=== PATIENT | female | born 1965 | race Caucasian/White ===

== ENCOUNTER 2018-11-07 09:54 | Inpatient (IN) | payer OTHER ==
[2018-11-07] MEDS ORDERED: NA CHLORIDE 0.9% 1,000 ML ONE ×2 (11:35→14:13)
[2018-11-07] MEDS ORDERED: MORPHINE 4 MG/ML SYR ONE ×2 (11:35→14:13)
[2018-11-07] MEDS ORDERED: ONDANSETRON 4 MG/2 ML VIAL ONE (11:35)
[2018-11-07 11:52] LABS: Absolute Lymphocytes (CBC) 0.7 K/uL (0.7-4.9); Basophils % 0.2 % (0-1.3); Hematocrit 50.1 % (36.0-45.0); Lymphocytes % 2.4 % (15.3-44.8); MPV 10.9 fL (7.6-11.3); Monocytes % 7.9 % (3.3-12.3); RBC Red Blood Cell Count 5.68 M/uL (3.86-4.86)
[2018-11-07 12:18] LABS: Albumin 4.9 g/dL (3.4-5.0); Bilirubin Direct 0.2 mg/dL (0-0.2); Bilirubin Total 0.7 mg/dL (0.2-1.0); Potassium 4.4 mmol/L (3.5-5.1); Protein, Total 9.2 g/dL (6.4-8.2)
[2018-11-07 13:05] LABS: Blood Morphology Comment NOT SEEN (NOT SEEN); Platelet Estimate ADEQ
--- NOTE | 2018-11-07 13:31 | RAD REPORT ---
EXAM DESCRIPTION: CTAbdomen Pelvis W Contrast - 11/07/2018 12:54 pm CLINICAL HISTORY: Abdominal pain. Abd pain;GI bleed COMPARISON: Abdomen Pelvis W Contrast dated 10/17/2016; CT ABD PELVIS W CONTRAST dated 12/02/2012 TECHNIQUE: Biphasic CT imaging of the abdomen and pelvis was performed with 100 ml non-ionic IV cont rast. All CT scans are performed using dose optimization technique as appropriate and may include automated exposure control or mA/KV adjustment according to patient size. FINDINGS: The lung bases are clear. Cholecystectomy clips. The liver, spleen, pancreas, adrenal glands and kidneys are within normal limits. Small cyst is prese nt in the medial left kidney. No bowel obstruction, free air, free fluid or abscess. Mild wall thickening and mucosal enhancement i s seen involving the colon beginning at the transverse colon, extending along the splenic flexure and involving the descending colon. This is compatible with [id number] left-sided colitis. No pneu matosis coli seen. The appendix is normal. No evidence of significant lymphadenopathy. No suspicious bony findings. Hardware is present in the lower lumbar spine. IMPRESSION: [id number] left-sided colitis is present. No bowel obstruction or abscess.
--- NOTE | 2018-11-07 14:05 | ER ---
Nurse's Notes [facility] Name: Amy Rangel Age: 53 yrs Sex: Female : 1965 Arrival Date: 11/07/2018 Time: 09:56 Bed 6 Private MD: Shayan Banda T Diagnosis: Left sided colitis with rectal bleeding;Leukocytosis Presentation: 11/07 10:04 Presenting complaint: N/V/D, abdominal cramping, and subjective fever x 2 days, bright hb red blood in stool today. Transition of care: patient was not received from another setting of care. Onset of symptoms was November 06, 2018. Risk Assessment: Do you want to hurt yourself or someone else? Patient reports no desire to harm self or others. Care prior to arrival: None. 10:04 Method Of Arrival: Ambulatory hb 10:04 Acuity: NELSY 3 hb 16:14 Initial Sepsis Screen: Does the patient meet any 2 criteria? No. Patient's initial aj sepsis screen is negative. Does the patient have a suspected source of infection? No. Patient's initial sepsis screen is negative. Historical: - Allergies: 10:06 PENICILLINS; hb 10:06 Codeine; hb 10:06 Sulfa (Sulfonamide Antibiotics); hb - Home Meds: 10:06 losartan oral oral [Active]; Glyxambi oral oral [Active]; rosuvastatin oral oral hb [Active]; Trulicity subcutaneous subcutaneous [Active]; Lyrica Oral [Active]; - PMHx: 10:06 Hypertension; Diabetes - IDDM; hb - Immunization history:: Adult Immunizations up to date. - Social history:: Smoking status: Patient/guardian denies using tobacco. - Ebola Screening: : No symptoms or risks identified at this time. Screenin:17 Abuse screen: Denies threats or abuse. Denies injuries from another. Nutritional hb screening: No deficits noted. Tuberculosis screening: No symptoms or risk factors identified. Fall Risk None identified. Assessment: 10:20 General: Appears in no apparent distress. comfortable, Behavior is calm, cooperative, aj appropriate for age. Pain: Complains of pain in abdomen. Neuro: Level of Consciousness is awake, alert, obeys commands, Oriented to person, place, time, situation, Appropriate for age. Respiratory: Airway is patent Respiratory effort is even, unlabored, Respiratory pattern is regular, symmetrical. GI: Abdomen is non-distended, obese, Reports lower abdominal pain, upper abdominal pain, diarrhea, bloody stool, nausea, vomiting. Derm: Skin is intact, is healthy with good turgor, Skin is pink, warm \T\ dry. normal. 12:45 Reassessment: Patient appears in no apparent distress at this time. No changes from aj previously documented assessment. Patient and/or family updated on plan of care and expected duration. Pain level reassessed. Patient is alert, oriented x 3, equal unlabored respirations, skin warm/dry/pink. 12:45 Reassessment: Patient appears in no apparent distress at this time. No changes from aj previously documented assessment. Patient and/or family updated on plan of care and expected duration. Pain level reassessed. Patient is alert, oriented x 3, equal unlabored respirations, skin warm/dry/pink. 15:33 Reassessment: Patient appears in no apparent distress at this time. No changes from aj previously documented assessment. Patient and/or family updated on plan of care and expected duration. Pain level reassessed. Patient is alert, oriented x 3, equal unlabored respirations, skin warm/dry/pink. Patient states feeling better. Patient states symptoms have improved. Vital Signs: 10:06 BP 130 / 78; Pulse 119; Resp 16; Temp 98.2; Pulse Ox 100% on R/A; Weight 68.04 kg; hb Height 5 ft. 5 in. (165.10 cm); Pain 7/10; 11:37 BP 115 / 75; Pulse 93; Resp 16; Pulse Ox 100% on R/A; aj 12:42 BP 120 / 77; Pulse 103; Resp 20; Pulse Ox 100% on R/A; aj 15:33 BP 120 / 77; Pulse 67; Resp 17; Pulse Ox 99% on R/A; aj 16:55 BP 119 / 73; Pulse 76; Resp 16; Pulse Ox 99% on R/A; aj 10:06 Body Mass Index 24.96 (68.04 kg, 165.10 cm) hb ED Course: 09:56 Patient arrived in ED. ag5 09:56 Shayan Banda MD is Private Physician. ag5 10:05 Triage completed. hb 10:06 Arm band placed on. hb 10:15 Rosa Abbasi, JOSE ALEJANDRO is Primary Nurse. aj 10:16 Michael Davis NP is PHCP. pm1 10:16 José Van MD is Attending Physician. pm1 10:17 Allergy band placed. Bed in low position. Call light in reach. Side rails up X 1. hb 11:36 Inserted saline lock: 22 gauge in right antecubital area, using aseptic technique. aj Blood collected. 12:45 No provider procedures requiring assistance completed. aj 12:55 CT Abd/Pelvis - IV Contrast Only In Process Unspecified. EDMS 14:02 Kirsten Galeana MD is Hospitalizing Provider. pm1 15:10 Urine collected: clean catch specimen, clear, luis colored. jb1 16:14 Patient admitted, IV remains in place. intact. aj 16:56 Report given to Erika Weinstein RN. aj Administered Medications: 11:34 Drug: Zofran 4 mg Route: IVP; Site: right antecubital; aj 11:34 Drug: morphine 4 mg Route: IVP; Site: right antecubital; aj 11:35 Drug: NS 0.9% 1000 ml Route: IV; Rate: 1000 ml; Site: right antecubital; aj 14:00 Drug: NS 0.9% 1000 ml Route: IV; Rate: 1000 ml; Site: right antecubital; aa5 17:09 Follow up: Response: No adverse reaction; IV Status: Completed infusion; IV Intake: aj 1000ml 14:00 Drug: morphine 4 mg Route: IVP; Site: right antecubital; aa5 14:05 Follow up: Response: No adverse reaction aa5 14:03 Drug: Flagyl 500 mg Volume: 100 ml; Route: IVPB; Rate: 200 ml/hr; Infused Over: 30 aa5 mins; Site: right antecubital; 15:41 Follow up: Response: No adverse reaction; IV Status: Completed infusion; IV Intake: aj 100ml 15:05 Drug: LevaQUIN 500 mg Volume: 100 ml; Route: IVPB; Infused Over: 60 mins; Site: right aj antecubital; 17:09 Follow up: Response: No adverse reaction; IV Status: Completed infusion; IV Intake: aj 100ml Intake: 15:41 IV: 100ml; Total: 100ml. aj 17:09 IV: 1000ml; Total: 1100ml. aj 17:09 IV: 100ml; Total: 1200ml. aj Outcome: 14:04 Decision to Hospitalize by Provider. pm1 16:12 Admitted to Med/surg accompanied by tech, via wheelchair, room 203, with chart. jignesh 16:12 Condition: good 16:12 Instructed on the need for admit. 17:09 Patient left the ED. jignesh Signatures: Dispatcher [employer] EDConrad Paredes jb1 Rosa Abbasi RN RN Holly Ho RN RN aa5 Michael Davis, DIRECTOR OF SAFETY AND SECURITY DIRECTOR OF SAFETY AND SECURITY pm1 Delisa Prado RN RN Hailee Perez ag5 Corrections: (The following items were deleted from the chart) 12:50 12:45 BP 115 / 77; Pulse 70bpm; Resp 16bpm; Pulse Ox 100% RA; jignesh egan
--- NOTE | 2018-11-07 14:05 | EDPHYS ---
Physician Documentation [facility] Name: Amy Rangel Age: 53 yrs Sex: Female : 1965 Arrival Date: 11/07/2018 Time: 09:56 Bed 6 Private MD: Shayan Banda T ED Physician José Van HPI: 11/07 11:09 This 53 yrs old Female presents to ER via Ambulatory with complaints of pm1 Bloody Stools, Diarrhea, Abdominal Pain. 11:09 The patient presents with abdominal pain in the left lower quadrant. Onset: The pm1 symptoms/episode began/occurred 2 day(s) ago. The symptoms do not radiate. Associated signs and symptoms: Pertinent positives: fever, Bloody mucoid diarrhea onset today, Pertinent negatives: nausea and vomiting, chest pain, dysuria, shortness of breath. The symptoms are described as crampy. Modifying factors: The symptoms are alleviated by nothing, the symptoms are aggravated by nothing. Severity of pain: in the emergency department the pain is actually worse. The patient has experienced similar episodes in the past, with the last episode occurring Ulcerative colitis flare up. The patient has not recently seen a physician, the patient's primary care provider is Dr. Banda. Historical: - Allergies: 10:06 PENICILLINS; hb 10:06 Codeine; hb 10:06 Sulfa (Sulfonamide Antibiotics); hb - Home Meds: 10:06 losartan oral oral [Active]; Glyxambi oral oral [Active]; rosuvastatin oral oral hb [Active]; Trulicity subcutaneous subcutaneous [Active]; Lyrica Oral [Active]; - PMHx: 10:06 Hypertension; Diabetes - IDDM; hb - Immunization history:: Adult Immunizations up to date. - Social history:: Smoking status: Patient/guardian denies using tobacco. - Ebola Screening: : No symptoms or risks identified at this time. ROS: 11:09 Eyes: Negative for injury, pain, redness, and discharge, ENT: Negative for injury, pm1 pain, and discharge. 11:09 Neck: Negative for injury, pain, and swelling, Cardiovascular: Negative for chest pain, palpitations, and edema, Respiratory: Negative for shortness of breath, cough, wheezing, and pleuritic chest pain. 11:09 Back: Negative for injury and pain, : Negative for injury, bleeding, discharge, and swelling, MS/Extremity: Negative for injury and deformity, Skin: Negative for injury, rash, and discoloration, Neuro: Negative for headache, weakness, numbness, tingling, and seizure. 11:09 Constitutional: Positive for fever, Negative for poor PO intake. 11:09 Abdomen/GI: Positive for abdominal pain, rectal bleeding, Negative for nausea and vomiting, hematemesis. Exam: 11:09 Constitutional: This is a well developed, well nourished patient who is awake, alert, pm1 and in no acute distress. Head/Face: Normocephalic, atraumatic. Neck: Trachea midline, no thyromegaly or masses palpated, and no cervical lymphadenopathy. Supple, full range of motion without nuchal rigidity, or vertebral point tenderness. No Meningismus. Chest/axilla: Normal chest wall appearance and motion. Nontender with no deformity. No lesions are appreciated. Cardiovascular: Regular rate and rhythm with a normal S1 and S2. No gallops, murmurs, or rubs. Normal PMI, no JVD. No pulse deficits. Respiratory: Lungs have equal breath sounds bilaterally, clear to auscultation and percussion. No rales, rhonchi or wheezes noted. No increased work of breathing, no retractions or nasal flaring. 11:09 Back: No spinal tenderness. No costovertebral tenderness. Full range of motion. Skin: Warm, dry with normal turgor. Normal color with no rashes, no lesions, and no evidence of cellulitis. MS/ Extremity: Pulses equal, no cyanosis. Neurovascular intact. Full, normal range of motion. 11:09 Abdomen/GI: Inspection: abdomen appears normal, Bowel sounds: normal, Palpation: soft, moderate abdominal tenderness, in the left lower quadrant, mass, is not appreciated, rebound tenderness, is not appreciated, Bright red mucoid stool observed in the ER bathroom. 11:09 Neuro: Orientation: is normal, Motor: is normal, moves all fours, Sensation: is normal, no obvious gross deficits. Vital Signs: 10:06 BP 130 / 78; Pulse 119; Resp 16; Temp 98.2; Pulse Ox 100% on R/A; Weight 68.04 kg; hb Height 5 ft. 5 in. (165.10 cm); Pain 7/10; 11:37 BP 115 / 75; Pulse 93; Resp 16; Pulse Ox 100% on R/A; aj 12:42 BP 120 / 77; Pulse 103; Resp 20; Pulse Ox 100% on R/A; aj 15:33 BP 120 / 77; Pulse 67; Resp 17; Pulse Ox 99% on R/A; aj 16:55 BP 119 / 73; Pulse 76; Resp 16; Pulse Ox 99% on R/A; aj 10:06 Body Mass Index 24.96 (68.04 kg, 165.10 cm) hb MDM: 10:36 Patient medically screened. pm1 13:55 Counseling: I had a detailed discussion with the patient and/or guardian regarding: the pm1 historical points, exam findings, and any diagnostic results supporting the discharge/admit diagnosis, lab results, radiology results, the need for further work-up and treatment in the hospital. 13:55 Data reviewed: vital signs. Data interpreted: Pulse oximetry: on room air is 100 %. pm1 Interpretation: normal. 14:00 Physician consultation: Kirsten Galeana MD was called at 14:00, was contacted at 14:00, pm1 regarding admission, patient's condition, and will see patient. 14:00 Physician consultation: Kirsten Galeana MD She will place patient in observation status pm1 and will discuss with case management to determine if patient meets criteria for inpatient admission. 11/07 11:09 Order name: Basic Metabolic Panel; Complete Time: 12:34 pm1 11/07 11:09 Order name: CBC with Diff; Complete Time: 13:14 pm1 11/07 11:09 Order name: Creatinine for Radiology; Complete Time: 12:34 pm11/07 11:09 Order name: Hepatic Function; Complete Time: 12:34 pm11/07 11:09 Order name: Lipase; Complete Time: 12:34 pm11/07 11:56 Order name: Procalcitonin; Complete Time: 13:32 pm11/07 11:09 Order name: CT Abd/Pelvis - IV Contrast Only; Complete Time: 13:32 pm11/07 11:56 Order name: Lactate; Complete Time: 13:50 pm1 11/07 11:56 Order name: Blood Culture Adult (2) pm1 11/07 11:58 Order name: Manual Differential; Complete Time: 13:14 EDMS 11/07 14:18 Order name: Urine Dipstick--Ancillary (enter results); Complete Time: 14:41 eb 11/07 11:09 Order name: IV Saline Lock; Complete Time: 11:35 pm1 11/07 11:09 Order name: Labs collected and sent; Complete Time: 11:35 pm1 11/07 11:09 Order name: Urine Dipstick-Ancillary (obtain specimen); Complete Time: 15:45 pm1 11/07 14:06 Order name: CONS Physician Consult EDNE 11/07 14:06 Order name: NPO EDNE Administered Medications: 11:34 Drug: Zofran 4 mg Route: IVP; Site: right antecubital; aj 11:34 Drug: morphine 4 mg Route: IVP; Site: right antecubital; aj 11:35 Drug: NS 0.9% 1000 ml Route: IV; Rate: 1000 ml; Site: right antecubital; aj 14:00 Drug: NS 0.9% 1000 ml Route: IV; Rate: 1000 ml; Site: right antecubital; aa5 17:09 Follow up: Response: No adverse reaction; IV Status: Completed infusion; IV Intake: aj 1000ml 14:00 Drug: morphine 4 mg Route: IVP; Site: right antecubital; aa5 14:05 Follow up: Response: No adverse reaction aa5 14:03 Drug: Flagyl 500 mg Volume: 100 ml; Route: IVPB; Rate: 200 ml/hr; Infused Over: 30 aa5 mins; Site: right antecubital; 15:41 Follow up: Response: No adverse reaction; IV Status: Completed infusion; IV Intake: aj 100ml 15:05 Drug: LevaQUIN 500 mg Volume: 100 ml; Route: IVPB; Infused Over: 60 mins; Site: right aj antecubital; 17:09 Follow up: Response: No adverse reaction; IV Status: Completed infusion; IV Intake: aj 100ml Disposition: 11/07/18 14:04 Hospitalization ordered by Kirsten Galeana for Observation. Preliminary diagnosis are Left sided colitis with rectal bleeding, Leukocytosis. - Bed requested for Telemetry/MedSurg (observation). - Status is Observation. aj - Condition is Stable. - Problem is new. - Symptoms have improved. UTI on Admission? No Addendum: 11/09/2018 07:46 Co-signature as Attending Physician, José Van MD. g s Signatures: Dispatcher [employer] EDNE Elva Forrester, RN Rosa Baldwin, RN RN Holly Ho, RN RN aa5 Michael Davis, ADMITTING REPRESENTATIVE ADMITTING REPRESENTATIVE pm1 Delisa Prado, José Renteria RN, MD MD gs Corrections: (The following items were deleted from the chart) 11/07 16:04 14:04 Hospitalization Ordered by Kirsten Galeana MD for Observation. Preliminary dw diagnosis is Left sided colitis with rectal bleeding; Leukocytosis. Bed requested for Telemetry/MedSurg (observation). Status is Observation. Condition is Stable. Problem is new. Symptoms have improved. UTI on Admission? No. pm1 17:09 16:04 11/07/2018 14:04 Hospitalization Ordered by Kirsten Galeana MD for Observation. aj Preliminary diagnosis is Left sided colitis with rectal bleeding; Leukocytosis. Bed requested for Telemetry/MedSurg (observation). Status is Observation. Condition is Stable. Problem is new. Symptoms have improved. UTI on Admission? No. dw
[2018-11-07] MEDS ORDERED: METRONIDAZOLE 500mg IVPB 500 MG/100 ML BAG IV ONE (14:13)
[2018-11-07] MEDS ORDERED: Levofloxacin500mg IV 500 MG/100 ML BAG IV ONE (14:13)
[2018-11-07 14:30] LABS: Urine Blood 1+ (NEG); Urine Glucose 2+ (NEG); Urine Protein NEGATIVE (NEG); Urine Specific Gravity 1.005 (1.005-1.030)
[2018-11-07] MEDS ORDERED: INSULIN -REGULAR HUMAN 50 UNIT/0.5 ML ML SQ SCH (17:11)
[2018-11-07] MEDS: METRONIDAZOLE 500mg IVPB 500 MG/100 ML BAG IV SCH (17:56)
--- NOTE | 2018-11-07 18:08 | P.HP ---
Certification for Inpatient Patient admitted to: Observation With expected LOS: <2 Midnights Patient will require the following post-hospital care: None Practitioner: I am a practitioner with admitting privileges, knowledge of patient current condition, hospital course, and medical plan of care. Services: Services provided to patient in accordance with Admission requirements found in Title 42 Section 412.3 of the Code of Federal Regulations Patient History Date of Service: 11/07/18 Primary Care Provider: Dr Banda Reason for admission: Abd pain History of Present Illness: 53-year-old female with past medical history of hypertension, diabetes, ulcerative colitis who presented to the ED with abdominal pain nausea vomiting and bloody diarrhea. Patient stated that she has been having some fever and chills for past couple of days and has gotten progressively worse and thus she decided to come to the ER. Patient stated that she has had similar episodes in the past because of her ulcerative colitis and has been treated with steroids and antibiotics. Patient stated that she sees Dr. galicia as her primary care doctor. Patient denies having any shortness of breath, chest pain or any other associated symptoms Allergies codeine [Codeine] Allergy (Intermediate, Verified 02/18/12 22:25) HALLUCINATIONS Penicillins Allergy (Intermediate, Verified 02/18/12 22:25) UNKNOWN Home medications list reviewed: No - Past Medical/Surgical History Has patient received pneumonia vaccine in the past: No Diabetic: No Past Medical History: Reviewed- Non-Contributory -: Hypertension -: Diabetes -: Ulcerative colitis Review of Systems 10-point ROS is otherwise unremarkable Physical Examination - Vital Signs Temperature: 98.2 F Blood Pressure: 119/73 Pulse: 76 Respirations: 16 - Physical Exam General: Alert, In no apparent distress HEENT: Atraumatic, PERRLA, Mucous membr. moist/pink, EOMI, Sclerae nonicteric Neck: Supple, 2+ carotid pulse no bruit, No LAD, Without JVD or thyroid abnormality Respiratory: Clear to auscultation bilaterally, Normal air movement Cardiovascular: Regular rate/rhythm, Normal S1 S2 Gastrointestinal: Normal bowel sounds, Tenderness Integumentary: No rashes Neurological: Normal gait, Normal speech, Normal strength at 5/5 x4 extr, Normal tone, Normal affect Lymphatics: No axilla or inguinal lymphadenopathy - Studies Laboratory Data (last 24 hrs) 11/07/18 11:30: Creatinine 1.07 11/07/18 11:30: WBC 28.0 H*, Hgb 16.8 H, Hct 50.1 H, Plt Count 424 H 11/07/18 11:30: Sodium 137, Potassium 4.4, BUN 27 H, Creatinine 1.10, Glucose 159 H, Total Bilirubin 0.7, AST 40 H, ALT 52, Alkaline Phosphatase 240 H, Lipase 38 L Assessment and Plan - Problems (Diagnosis) (1) Left sided colitis Current Visit: Yes Status: Acute Plan: Left-sided colitis with past medical history of ulcerative colitis -patient with bloody diarrhea nausea vomiting along with fever and chills -will start patient on IV Cipro and Flagyl -the NPO and pain management along with IV fluids -GI consulted. Awaiting recommendations Qualifiers: Digestive disease complication type: without complication Qualified Code(s) : K51.50 - Left sided colitis without complications (2) History of ulcerative colitis Current Visit: Yes Status: Chronic (3) Hypertension Current Visit: Yes Status: Chronic Qualifiers: Hypertension type: essential hypertension Qualified Code(s): I10 - Essential (primary) hypertension (4) Diabetes Current Visit: Yes Status: Chronic Qualifiers: Diabetes mellitus type: type 2 Diabetes mellitus fdc insulin use: without fdc use Diabetes mellitus complication status: without complication Qualified Code(s): E11.9 - Type 2 diabetes mellitus without complications Discharge Plan: Home Plan to discharge in: Greater than 2 days - Advance Directives Does patient have a Living Will: No Does patient have a Durable POA for Healthcare: No - Code Status/Comfort Care Code Status Assessed: Yes Critical Care: No
[2018-11-07 18:23] VITALS: BMI 25.0
[2018-11-07] MEDS: ONDANSETRON 4 MG/2 ML VIAL IV PRN ×2 (18:45→22:26)
[2018-11-07] MEDS: D5 0.45 NS 1,000 ML IV SCH (19:00)
[2018-11-07] MEDS: CIPROFLOXACIN 400mg IV 400 MG/200 ML BAG IV SCH (20:09)
[2018-11-07] MEDS: MORPHINE 2 MG/ML SYR IV PRN (20:15)
[2018-11-08] MEDS: METRONIDAZOLE 500mg IVPB 500 MG/100 ML BAG IV SCH ×5 (01:00→23:04)
[2018-11-08] MEDS: MORPHINE 2 MG/ML SYR IV PRN ×3 (04:29→18:47)
[2018-11-08] MEDS: D5 0.45 NS 1,000 ML IV SCH ×2 (05:41→23:02)
[2018-11-08 05:48] LABS: Absolute Lymphocytes (CBC) 1.3 K/uL (0.7-4.9); Basophils % 0.2 % (0-1.3); Eosinophils % 0.2 % (0-4.4); Hematocrit 40.2 % (36.0-45.0); Lymphocytes % 7.1 % (15.3-44.8); MPV 10.4 fL (7.6-11.3); Monocytes % 11.9 % (3.3-12.3); RBC Red Blood Cell Count 4.52 M/uL (3.86-4.86)
[2018-11-08 06:00] LABS: Bilirubin Total 0.6 mg/dL (0.2-1.0); Magnesium 2.2 mg/dL (1.8-2.4); Potassium 4.4 mmol/L (3.5-5.1); Protein, Total 6.5 g/dL (6.4-8.2)
[2018-11-08] MEDS: INSULIN -REGULAR HUMAN 50 UNIT/0.5 ML ML SQ SCH ×4 (06:00→17:33)
[2018-11-08] MEDS: CIPROFLOXACIN 400mg IV 400 MG/200 ML BAG IV SCH ×2 (08:16→20:57)
[2018-11-08] MEDS ORDERED: LEVALBUTEROL 0.63 MG/3 ML NEB NEB PRN (10:46)
[2018-11-08] MEDS ORDERED: IPRATROPIUM BROM 0.5MG/2.5ML NEB PRN (10:46)
--- NOTE | 2018-11-08 11:12 | P.PN ---
Subjective Date of Service: 11/08/18 Primary Care Provider: Dr Banda Chief Complaint: Abd pain Patient seen and examined at bedside with RN. Chart reviewed. Case discussed with patient at bedside. Currently awaiting GI recommendation. Denies Diarrhea and N/V. Denies Fever and Chills. Review of Systems 10-point ROS is otherwise unremarkable Physical Examination - Vital Signs Temperature: 98.9 F Blood Pressure: 107/71 Pulse: 92 Respirations: 18 Pulse Ox (%): 92 - Physical Exam General: Alert, In no apparent distress HEENT: Atraumatic, PERRLA, EOMI Neck: Supple, JVD not distended Respiratory: Clear to auscultation bilaterally, Normal air movement Cardiovascular: Regular rate/rhythm, Normal S1 S2 Gastrointestinal: Normal bowel sounds, No tenderness Musculoskeletal: No tenderness Integumentary: No rashes Neurological: Normal speech, Normal tone, Normal affect Lymphatics: No axilla or inguinal lymphadenopathy - Studies Laboratory Data (last 24 hrs) 11/08/18 04:59: Sodium 140, Potassium 4.4, BUN 13, Creatinine 0.68, Glucose 113 H, Phosphorus 2.0 L, Magnesium 2.2, Total Bilirubin 0.6, AST 27, ALT 33, Alkaline Phosphatase 133 H 11/08/18 04:59: WBC 17.8 H D, Hgb 13.2 D, Hct 40.2 D, Plt Count 297 D 11/07/18 11:30: Creatinine 1.07 11/07/18 11:30: WBC 28.0 H*, Hgb 16.8 H, Hct 50.1 H, Plt Count 424 H 11/07/18 11:30: Sodium 137, Potassium 4.4, BUN 27 H, Creatinine 1.10, Glucose 159 H, Total Bilirubin 0.7, AST 40 H, ALT 52, Alkaline Phosphatase 240 H, Lipase 38 L Medications List Reviewed: Yes Assessment And Plan - Current Problems (Diagnosis) (1) Left sided colitis Current Visit: Yes Status: Acute Plan: Left-sided colitis with past medical history of ulcerative colitis -patient with bloody diarrhea nausea vomiting along with fever and chills admission -diarrhea improved today no nausea no vomiting -On IV Cipro and Flagyl -continue with IV fluids and pain management at this time -GI consulted. Awaiting recommendations Qualifiers: Digestive disease complication type: without complication Qualified Code(s) : K51.50 - Left sided colitis without complications (2) History of ulcerative colitis Current Visit: Yes Status: Chronic Plan: Patient with history of ulcerative colitis. -currently seems to have acute infection. -started on IV Cipro and Flagyl will continue that here in the hospital (3) Hypertension Current Visit: Yes Status: Chronic Plan: Stable at this time Qualifiers: Hypertension type: essential hypertension Qualified Code(s): I10 - Essential (primary) hypertension (4) Diabetes Current Visit: Yes Status: Chronic Plan: Insulin sliding scale and Accu-Chek Qualifiers: Diabetes mellitus type: type 2 Diabetes mellitus correction insulin use: without correction use Diabetes mellitus complication status: without complication Qualified Code(s): E11.9 - Type 2 diabetes mellitus without complications
[2018-11-08] MEDS: ROSUVASTATIN 10 MG TAB PO SCH (20:57)
[2018-11-08] MEDS: PREGABALIN 50 MG CAP PO SCH (20:57)
[2018-11-09] MEDS: MORPHINE 2 MG/ML SYR IV PRN ×3 (03:02→21:24)
[2018-11-09 06:02] LABS: Absolute Lymphocytes (CBC) 1.5 K/uL (0.7-4.9); Basophils % 0.1 % (0-1.3); Eosinophils % 0.5 % (0-4.4); Hematocrit 35.5 % (36.0-45.0); Lymphocytes % 9.7 % (15.3-44.8); Monocytes % 8.9 % (3.3-12.3); RBC Red Blood Cell Count 3.99 M/uL (3.86-4.86)
[2018-11-09 06:15] LABS: ALT/SGPT 25 U/L (12-78); AST/SGOT 15 U/L (15-37); Albumin 2.9 g/dL (3.4-5.0); Alkaline Phosphatase 114 U/L (45-117); BUN Blood Urea Nitrogen 7 mg/dL (7-18); Bicarbonate 29 mmol/L (21-32); Bilirubin Total 0.5 mg/dL (0.2-1.0); Glucose Level 125 mg/dL (74-106); Magnesium 2.1 mg/dL (1.8-2.4); Phosphorus 1.7 mg/dL (2.5-4.9); Protein, Total 6.1 g/dL (6.4-8.2); Sodium Level 139 mmol/L (136-145)
[2018-11-09] MEDS: METRONIDAZOLE 500mg IVPB 500 MG/100 ML BAG IV SCH ×3 (06:54→17:15)
[2018-11-09] MEDS ORDERED: D50W 25 GM/50 ML SYRINGE IV PRN (08:54)
[2018-11-09] MEDS ORDERED: GLUCAGON 1 MG/VIAL IM PRN (08:54)
[2018-11-09] MEDS: LOSARTAN POTASSIUM 50 MG TABLET PO SCH (08:57)
[2018-11-09] MEDS: POTASS/SODIUM PHOSPHATE 1 PKT POWD.PACK PO SCH ×3 (08:58→10:35)
[2018-11-09] MEDS: PREGABALIN 50 MG CAP PO SCH ×2 (08:58→21:22)
[2018-11-09] MEDS: CIPROFLOXACIN 400mg IV 400 MG/200 ML BAG IV SCH ×2 (08:58→21:22)
[2018-11-09] MEDS: D5 0.45 NS 1,000 ML IV SCH ×2 (11:00→13:56)
[2018-11-09] MEDS: INSULIN -REGULAR HUMAN 50 UNIT/0.5 ML ML SQ SCH ×3 (11:30→21:00)
--- NOTE | 2018-11-09 12:27 | P.PN ---
Subjective Date of Service: 11/09/18 Primary Care Provider: Dr Banda Chief Complaint: Abd pain Patient seen and examined at bedside with RN. Chart reviewed. Case discussed with patient at bedside. Currently awaiting GI recommendation. Denies Diarrhea and N/V. Denies Fever and Chills. Review of Systems 10-point ROS is otherwise unremarkable Physical Examination - Vital Signs Temperature: 97.5 F Blood Pressure: 91/54 Pulse: 83 Respirations: 16 Pulse Ox (%): 95 - Physical Exam General: Alert, In no apparent distress HEENT: Atraumatic, PERRLA, EOMI Neck: Supple, JVD not distended Respiratory: Clear to auscultation bilaterally, Normal air movement Cardiovascular: Regular rate/rhythm, Normal S1 S2 Gastrointestinal: Normal bowel sounds, No tenderness Musculoskeletal: No tenderness Integumentary: No rashes Neurological: Normal speech, Normal tone, Normal affect Lymphatics: No axilla or inguinal lymphadenopathy - Studies Microbiology Data (last 24 hrs): 11/07/18 20:35 Stool Clostridium difficile Toxin Assay - Final Medications List Reviewed: Yes Assessment And Plan - Current Problems (Diagnosis) (1) Left sided colitis Current Visit: Yes Status: Acute Plan: Left-sided colitis with past medical history of ulcerative colitis -patient with bloody diarrhea nausea vomiting along with fever and chills admission -diarrhea improved today no nausea no vomiting -On IV Cipro and Flagyl -continue with IV fluids and pain management at this time -C. diff positive -GI consulted. Awaiting recommendations - Qualifiers: Digestive disease complication type: without complication Qualified Code(s) : K51.50 - Left sided colitis without complications (2) History of ulcerative colitis Current Visit: Yes Status: Chronic Plan: Patient with history of ulcerative colitis. -currently seems to have acute infection. 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
--- NOTE | 2018-11-09 16:06 | P.PN ---
Subjective Date of Service: 11/09/18 Primary Care Provider: Dr Banda Chief Complaint: Colitis, abnormal CT, LLQ>RLQ abd pain Subjective: Improving (Decreased abdominal pain. Tolerating CLs) Review of Systems 10-point ROS is otherwise unremarkable Gastrointestinal: Nausea, Abdominal Pain (Slowly improving ) Physical Examination - Vital Signs Temperature: 97.5 F Blood Pressure: 91/54 Pulse: 83 Respirations: 16 Pulse Ox (%): 95 - Physical Exam General: Alert, In no apparent distress, Oriented x3, Cooperative HEENT: Atraumatic, Normocephalic, PERRLA, EOMI Neck: Supple Respiratory: Normal air movement Cardiovascular: Normal pulses Gastrointestinal: No rebound, Tenderness, Guarding Neurological: Normal speech, Normal strength at 5/5 x4 extr - Studies Microbiology Data (last 24 hrs): 11/07/18 20:35 Stool Clostridium difficile Toxin Assay - Final Medications List Reviewed: Yes Assessment And Plan - Current Problems (Diagnosis) (1) Abnormal CT of the abdomen Current Visit: Yes Status: Acute (2) Change in bowel habits Current Visit: Yes Status: Acute (3) Diarrhea Current Visit: Yes Status: Acute (4) Left sided colitis Current Visit: Yes Status: Acute Comment: Probably infectious in origin with symptoms after eating out. Qualifiers: Digestive disease complication type: without complication Qualified Code(s) : K51.50 - Left sided colitis without complications (5) History of ulcerative colitis Current Visit: Yes Status: Chronic - Plan REC: 1) Continue IVFs and IV antibiotics 2) await stool studies 3) clear liquid diet today 4) continue prn pain medications / anti-emetics
[2018-11-09] MEDS: ROSUVASTATIN 10 MG TAB PO SCH (21:23)
[2018-11-10] MEDS: METRONIDAZOLE 500mg IVPB 500 MG/100 ML BAG IV SCH ×3 (00:47→11:52)
[2018-11-10] MEDS: D5 0.45 NS 1,000 ML IV SCH ×2 (00:56→07:00)
[2018-11-10 06:48] LABS: Absolute Lymphocytes (CBC) 1.2 K/uL (0.7-4.9); Basophils % 0.2 % (0-1.3); Eosinophils % 0.6 % (0-4.4); Hematocrit 33.1 % (36.0-45.0); Lymphocytes % 10.6 % (15.3-44.8); Monocytes % 8.4 % (3.3-12.3); RBC Red Blood Cell Count 3.66 M/uL (3.86-4.86)
[2018-11-10 07:22] LABS: ALT/SGPT 15 U/L (12-78); AST/SGOT 8 U/L (15-37); Albumin 2.4 g/dL (3.4-5.0); Alkaline Phosphatase 88 U/L (45-117); BUN Blood Urea Nitrogen 2 mg/dL (7-18); Bicarbonate 25 mmol/L (21-32); Bilirubin Total 0.4 mg/dL (0.2-1.0); Glucose Level 564 mg/dL (74-106); Magnesium 1.8 mg/dL (1.8-2.4); Phosphorus 1.9 mg/dL (2.5-4.9); Protein, Total 5.2 g/dL (6.4-8.2); Sodium Level 134 mmol/L (136-145)
[2018-11-10 07:24] LABS: Potassium 2.8 mmol/L (3.5-5.1)
[2018-11-10] MEDS: INSULIN -REGULAR HUMAN 50 UNIT/0.5 ML ML SQ SCH ×2 (07:30→11:30)
[2018-11-10] MEDS: KCL 20 MEQ/100 mL IVPB 20 MEQ/100 ML BAG IV SCH ×2 (08:00→10:00)
[2018-11-10] MEDS: PREGABALIN 50 MG CAP PO SCH (08:30)
[2018-11-10] MEDS: CIPROFLOXACIN 400mg IV 400 MG/200 ML BAG IV SCH (08:31)
[2018-11-10] MEDS: LOSARTAN POTASSIUM 50 MG TABLET PO SCH (08:31)
[2018-11-10 09:23] VITALS: O2SAT 95
[2018-11-10 11:15] LABS: BUN Blood Urea Nitrogen 2 mg/dL (7-18); Bicarbonate 29 mmol/L (21-32); Glucose Level 157 mg/dL (74-106); Potassium 3.4 mmol/L (3.5-5.1); Sodium Level 142 mmol/L (136-145)
[2018-11-10 11:16] LABS: ALT/SGPT 19 U/L (12-78); AST/SGOT 9 U/L (15-37); Albumin 2.8 g/dL (3.4-5.0); Alkaline Phosphatase 104 U/L (45-117); Bilirubin Total 0.4 mg/dL (0.2-1.0); Protein, Total 6.2 g/dL (6.4-8.2)
[2018-11-10] MEDS ORDERED: POTASSIUM CL SA 10 MEQ TAB PO ONE (12:00)
--- NOTE | 2018-11-10 13:21 | P.PN ---
Subjective Date of Service: 11/10/18 Primary Care Provider: Dr Banda Chief Complaint: Colitis, abnormal CT, LLQ>RLQ abd pain Subjective: Improving (WBC continues to improve from 28.0 to 11.6 today. Ischemic colitis versus infectious colitis, with CT revealing inflammation at the splenic flexure. Her abdominal pain has improved.) Review of Systems 10-point ROS is otherwise unremarkable Physical Examination - Vital Signs Temperature: 97.3 F Blood Pressure: 119/65 Pulse: 82 Respirations: 17 Pulse Ox (%): 95 - Studies Microbiology Data (last 24 hrs): 11/07/18 20:35 Stool Culture & Sensitivity - Final Medications List Reviewed: Yes Assessment And Plan - Current Problems (Diagnosis) (1) Abnormal CT of the abdomen Current Visit: Yes Status: Acute (2) Change in bowel habits Current Visit: Yes Status: Acute (3) Diarrhea Current Visit: Yes Status: Acute (4) Left sided colitis Current Visit: Yes Status: Acute Comment: Probably infectious in origin with symptoms after eating out. Qualifiers: Digestive disease complication type: without complication Qualified Code(s) : K51.50 - Left sided colitis without complications (5) History of ulcerative colitis Current Visit: Yes Status: Chronic - Plan REC: 1) Continue IVFs and IV antibiotics 2) await stool studies 3) clear liquid diet 4) continue prn pain medications / anti-emetics
--- NOTE | 2018-11-10 13:31 | P.DS ---
Admission Date: 11/08/18 Discharge Date: 11/10/18 Primary Care Provider: Dr Banda Disposition: ROUTINE DISCHARGE Discharge Condition: GOOD Reason for Admission: Colitis, abnormal CT, LLQ>RLQ abd pain Consultations: Gastroenterology - Problems (1) Left sided colitis Current Visit: Yes Status: Acute Qualifiers: Digestive disease complication type: without complication Qualified Code(s) : K51.50 - Left sided colitis without complications (2) History of ulcerative colitis Current Visit: Yes Status: Chronic (3) Hypertension Current Visit: Yes Status: Chronic Qualifiers: Hypertension type: essential hypertension Qualified Code(s): I10 - Essential (primary) hypertension (4) Diabetes Current Visit: Yes Status: Chronic Qualifiers: Diabetes mellitus type: type 2 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 Patient stated that she has been having some fever and chills for past couple of days and has gotten progressively worse and thus she decided to come to the ER. Patient stated that she has had similar episodes in the past because of her ulcerative colitis and has been treated with steroids and antibiotics. Patient stated that she sees Dr. galicia as her primary care doctor. Patient denies having any shortness of breath, chest pain or any other associated symptoms Hospital Course: Overall during the hospital stay patient remained stable Patient was initially admitted to the hospital for left-sided colitis found on abdominal CT after she was found to have nausea vomiting abdominal pain. Patient was started on IV antibiotics and C. diff was sent along with stool cultures. C. diff was positive for Clostridium difficile and patient was continued on p.o.. Flagyl. Once patient is bloody diarrhea nausea vomiting abdominal pain had resolved patient's diet was advanced to a full liquid diet which she tolerated well and then it was advanced to a GI soft which she tolerated well as well. Patient then was discharged home under stable condition was given prescription for Cipro and Flagyl to be taken for total 14 days. No other concerns at this time. Vital Signs/Physical Exam: Temp Pulse Resp BP Pulse Ox 97.3 F 82 17 119/65 95 11/10/18 13:22 11/10/18 13:22 11/10/18 13:22 11/10/18 13:22 11/10/18 13:22 General: Alert, In no apparent distress HEENT: Atraumatic, PERRLA, EOMI Neck: Supple, JVD not distended Respiratory: Clear to auscultation bilaterally, Normal air movement Cardiovascular: Regular rate/rhythm, Normal S1 S2 Gastrointestinal: Normal bowel sounds, No tenderness Musculoskeletal: No tenderness Integumentary: No rashes Neurological: Normal speech, Normal tone, Normal affect Lymphatics: No axilla or inguinal lymphadenopathy Laboratory Data at Discharge: WBC 11.6 K/uL (4.3-10.9) H D 11/10/18 06:14 Hgb 11.1 g/dL (12.0-15.0) L 11/10/18 06:14 Hct 33.1 % (36.0-45.0) L 11/10/18 06:14 Plt Count 236 K/uL (152-406) 11/10/18 06:14 Sodium 142 mmol/L (136-145) 11/10/18 10:29 Potassium 3.4 mmol/L (3.5-5.1) L 11/10/18 10:29 BUN 2 mg/dL (7-18) L 11/10/18 10:29 Creatinine 0.56 mg/dL (0.55-1.3) 11/10/18 10:29 Glucose 157 mg/dL (74-106) H 11/10/18 10:29 Phosphorus 1.9 mg/dL (2.5-4.9) L 11/10/18 06:14 Magnesium 1.8 mg/dL (1.8-2.4) 11/10/18 06:14 Total Bilirubin 0.4 mg/dL (0.2-1.0) 11/10/18 10:29 AST 9 U/L (15-37) L 11/10/18 10:29 ALT 19 U/L (12-78) 11/10/18 10:29 Alkaline Phosphatase 104 U/L (45-117) 11/10/18 10:29 Lipase 38 U/L (73-393) L 11/07/18 11:30 Home Medications: Cetirizine HCl/Pseudoephedrine [Zyrtec-D Tablet] 1 each PO DAILY 11/07/18 Dulaglutide [Trulicity] 0.75 mg SQ SEECOM 11/07/18 Empagliflozin/Linagliptin [Glyxambi 25 mg-5 mg Tablet] 1 each PO DAILY 11/07/18 Losartan Potassium [Cozaar*] 50 mg PO DAILY 11/07/18 Pregabalin [Lyrica*] 50 mg PO BID 11/07/18 Rosuvastatin [Crestor*] 10 mg PO BEDTIME 11/07/18 Ciprofloxacin HCl [Cipro 500 MG Tablet] 500 mg PO BID #28 tab 11/10/18 metroNIDAZOLE [Flagyl] 500 mg PO Q8H #42 tablet 11/10/18 New Medications: Ciprofloxacin HCl [Cipro 500 MG Tablet] 500 mg PO BID #28 tab metroNIDAZOLE [Flagyl] 500 mg PO Q8H #42 tablet Diet: Regular Activity: Ad donny
[2018-11-10 18:10] VITALS: BP 106/62; TEMP 98.7
--- NOTE | 2018-11-11 14:04 | CON ---
Date of Consultation: 11/08/2018 Reason For Consultation: Colitis with abdominal pain, nausea, vomiting, bloody diarrhea, change in b owel habits. History Of Present Illness: Patient is a 53-year-old white female with history of diabetes, hyperten tamanna, ulcerative colitis without treatment over the past 5 years. The patient presented to hospital with acute left lower quadrant and right lower quadrant pain with change in bowel habits, diarrhea, a nd hematochezia. After eating at [employer] restaurant, apparently the patient states she ate a [place] stea k there. Daughter has resurgence and has found that there has been an outbreak of E. coli from bites and meat in several other states, but not reported in [place] yet. CT of abdomen and pelvis revealed colitis. The patient also experienced some nausea and vomiting. She denies melena, hematemesis, cof fee-grounds emesis, hematuria, dysuria, polydipsia, shortness of breath and maybe some mild feelings of fevers, chills, but no night sweats. Past Medical History: Significant for diabetes, hypertension, ulcerative colitis, which has not been treated in over 5 years. She states she has an ulcerative colitis she states is managed by her and her primary care doctor only. 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 [facility] paroscopic cholecystectomy, 2 back surgeries, 3 right foot surgeries, skin cancer on the right leg, s quamous cell, . Allergies: TO CODEINE, PENICILLIN. Medications: See list. Social History: , 2 children. Tobacco, about a quarter pack per day. Positive for alcohol a s well. Family History: Father of lung cancer. He was a smoker. Mother alive and well as per her repo rt. Physical Examination: Vital Signs: She is 5 feet 5 inches, 150 pounds. BMI of 25 kg/m2. Temperature 97.3 degrees Fahrenh eit, pulse , respirations 18, blood pressure 113/60, O2 saturation 96%. HEENT: Normocephalic, atraumatic. Anicteric. Pupils equal, round, and reactive to light. Extraocu lar movements intact. Oropharynx clear. Neck: Supple. No masses, no bruits. Respirations: Clear to auscultation bilaterally. Cardiac: Regular rate and rhythm. No gallops or rubs. Abdomen: Soft, positive bowel sounds. Soft, nondistended. Pain left lower quadrant greater than ri ght, lower quadrant greater than left upper quadrant, midepigastric area. There was no rebound. The re was some guarding, however. Extremities: No clubbing, cyanosis, or edema. 2+ pulses. Neuro: X3. Grossly nonfocal. 5/5 motor strength light touch. Laboratory Data: The patient had a white count on admission of 28,000 down to 17,800 today. Hemoglo bin of 13.2, down from 16.8 yesterday. Hematocrit of 40, down from 50 yesterday. MCV of 89 up from yesterday. Platelet count of 297, down from 424 yesterday. The patient has polys of 81%, down from 90% yesterday. Lymphocytes 7%, monocytes 12%. She has a sodium of 140, potassium 4.4, ch loride of 107, bicarb 23; BUN of , calcium 7.9, phosphorus 2.0, magnesium 2.2, total biliru bin 0.6, AST 27, ALT 33, alkaline phosphatase 133, total protein 6.5, albumin 3.0. UA 2+ glucose, 1+ blood, trace ketones, otherwise negative. CT abdomen and pelvis performed yesterday reveals colitis with [id number] left-sided colitis noted, beginning in the transverse colon extending out di g the splenic flexure, and involving the descending colon. Impression: 1.Colitis, possibly ischemic colitis with CT revealing colitis of the left colon from the transverse colon down the splenic flexure to the descending colon. The patient had hematochezia, left lower qu adrant greater than right lower quadrant pain with change in bowel habits, diarrhea, bloody stool. S tarted after she ate at [employer] and apparently in [place] after eating diet sandwiches, noted in multiple other states to have social E coli. CT reveals colitis of the splenic flexure, distal transverse col on and proximal descending colon indicative of possible ischemic colitis, but in light of getting the symptoms after eating at s could be infectious as well though the location of the colitis is not c onsistent with E coli, is more consistent with ischemic colitis. The patient also has nausea, vomiti ng. 2.History of soft tissue sarcoma at [facility], diabetes, hypertension, tobacco abuse, ulcerative c olitis, PCP. 3.Laparoscopic cholecystectomy. Two back surgery. Three right foot surgeries and right leg skin ca ncer, squamous cell carcinoma. Squamous cell cancer, to be removed to be removed soon. Recommendations: 1.Continue IV fluids, IV antibiotics. 2.Continue p.r.n. pain medicines, antiemetics. 3.Clear liquids today and will advance slowly to full liquids and to GI soft. Colonoscopy in 4-6 we eks. 4.Check stool studies. 5.Review and reassess the ulcerative colitis. In light of being off therapy for this for over 5 yea rs, ensure that the patient has correct diagnosis, may have been incorrect diagnosis in the past or o ther. OMAR/CECILIO Voice ID: [id number] Report ID: [id number]
== END 2018-11-10 16:28 | disposition home or self-care (01) | DRG 372 ==
LOC: ER 09:54 → ERHOLD 14:02 → 2ND 17:00 → OBSVTOIN 11-08 10:03
PROVIDERS: ADMIT Family Medicine; ATTEND Family Medicine
DX: A04.72 Enterocolitis due to Clostridium difficile, not specified as recurrent (principal); K51.90 Ulcerative colitis, unspecified, without complications; I10 Essential (primary) hypertension; E11.9 Type 2 diabetes mellitus without complications; Z88.5 Allergy status to narcotic agent; Z88.0 Allergy status to penicillin
CPT/HCPCS: 36415; 74177; 80048; 80053; 80076; 81003; 82962; 83605; 83631; 83690; 83735; 84100; 84145; 85025; 87040; 87045; 87046; 87177; 87209; 87493; 94640; 96365; 96366; 96375; 99285; G0378; J0744; J2270; J2405; J7030; Q9967